=== PATIENT | female | born 1995 | race African-American/Black ===

== ENCOUNTER 2017-08-15 20:50 | Emergency (ER) | payer MEDICARE ==
[~2017-08-15 20:50] MED LIST: ISOVUE-370 76%-LOCM 1 ML ONE
[2017-08-15 21:50] LABS: #Basophils 0.1 thou/uL (0.0-0.2); #Eosinphils 0.1 thou/uL (0.0-0.7); #Lymphocytes 1.6 thou/uL (1.20-3.40); #Monocytes 0.7 thou/uL (0.11-0.59); #Neutrophils 9.8 thou/uL (1.40-6.50); %Basophils 0.5 % (0.0-1.0); %Eosinophils 0.4 % (0.0-10.0); %Lymphocytes 13.2 % (21.0-51.0); %Monocytes 5.5 % (0.0-10.0); %Neutrophils 80.4 % (42.0-75.0); Hemoglobin 12.7 g/dL (12.0-16.0); Mean Corpuscular HGB CONC 32.5 g/dL (32.0-36.0); Mean Corpuscular Hemoglobin 28.3 pg (27.0-31.0); Mean Platelet Volume 6.9 fL (7.4-10.4); Platelet Count 345 thou/uL (130-400); RBC Distribution Width 12.4 % (11.5-14.5); White Blood Cell (WBC) Count 12.2 thou/uL (4.8-10.8)
[2017-08-15 22:11] LABS: ALT (SGPT) 14 U/L (8-55); AST (SGOT) 25 U/L (5-34); Albumin 4.4 g/dL (3.5-5.0); Alkaline Phosphatase 58 U/L (40-150); Anion Gap 14 mmol/L (10-20); BUN (Urea Nitrogen) 8 mg/dL (7.0-18.7); Bilirubin, Total 0.6 mg/dL (0.2-1.2); Calc. Creatinine Clearance 0 mL/min (70-130); Calcium 9.7 mg/dL (7.8-10.44); Carbon Dioxide 25 mmol/L (22-29); Chloride 104 mmol/L (98-107); Estimated GFR-MDRD Greater than 90; Globulin 4.6 g/dL (2.4-3.5); Glucose 109 mg/dL (70-105); Potassium 3.8 mmol/L (3.5-5.1); Sodium 139 mmol/L (136-145)
[2017-08-15 22:13] LABS: Troponin I Less than 0.010 ng/mL (< 0.028)
[2017-08-15 22:19] LABS: CKMB 9.3 ng/mL (0-6.6)
--- NOTE | 2017-08-15 22:28 | RAD ---
SINGLE VIEW OF THE CHEST 08/15/17 COMPARISON: None. HISTORY: Chest palpitations and cough. FINDINGS: Single view of the chest shows a normal sized cardiomediastinal silhouette. There is no evidence of c onsolidation, mass, or pleural effusion. The bones are unremarkable. IMPRESSION: No evidence of acute cardiopulmonary disease. POS: [facility]
--- NOTE | 2017-08-15 23:12 | CT ---
CTA OF THE CHEST WITH CONTRAST 08/15/17 COMPARISON: None. HISTORY: Chest pain and palpitations. TECHNIQUE: Multiple contiguous axial images were obtained in a CTA of the chest with contrast per pulmonary embo lis protocol. 3D oblique MIP reformats and direct coronal reformats were performed. FINDINGS: The heart is normal in size without cardiac abnormality. The pulmonary arteries are well opacified wi thout filling defects to suggest pulmonary emboli. No hilar or mediastinal lymphadenopathy are seen. No focal infiltrates or nodules are seen in the lungs. No pneumothorax or pleural effusions are seen. The chest wall soft tissues and osseous structures are unremarkable. The visualized subdiaphragmatic structures are unremarkable. IMPRESSION: No evidence of pulmonary thromboembolism. POS: [facility]
== END 2017-08-15 23:48 | disposition home or self-care (01) ==
LOC: ERS 20:50
DX: R00.2 Palpitations (principal); R00.0 Tachycardia, unspecified; G62.9 Polyneuropathy, unspecified; M06.9 Rheumatoid arthritis, unspecified; Z79.52 Long term (current) use of systemic steroids; Z79.899 Other long term (current) drug therapy
CPT/HCPCS: 36415; 71045; 71275; 80053; 82553; 84443; 84484; 85025; 85379; 93005; 96360